=== PATIENT | male | born 1995 | race Caucasian/White ===

== ENCOUNTER 2022-02-15 00:32 | Day surgery (SDC) | payer OTHER ==
[2022-02-15] MEDS ORDERED: ACETAMINOPHEN 1000 MG/100 ML BAG IVPB ONE (01:38)
[2022-02-15] MEDS ORDERED: LACTATED RINGERS SOLUTION 1000 ML INFUS.BAG IV ONE (01:51)
[2022-02-15] MEDS ORDERED: ACETAMINOPHEN INJECTION 100 ML IVPB ONE (03:25)
[2022-02-15 03:26] LABS: BASO % 0.3 % (0-2.0); EOS % 1.2 % (0-4.5); HEMATOCRIT 42.2 % (35.4-49); HEMOGLOBIN 14.5 GM/dL (11.7-16.9); LYMPH % 35.5 % (8-40); MCH 31.6 pg (25.7-33.7); MCHC 34.4 g/dl (32.0-35.9); MEAN CELL VOLUME 91.8 fl (80-96); MEAN PLT VOLUME 7.8 fl (7.5-11.1); MONO % 6.9 % (3.8-10.2); NEUT % 56.1 % (42.8-82.8); PH,URINE 6.5 (5.0-8.0); PLATELET COUNT 213 10^3/uL (134-434); RDW 13.1 % (11.9-15.9); URINE APPEARANCE CLEAR; URINE BILIRUBIN NEGATIVE (NEGATIVE); URINE COLOR YELLOW; URINE GLUCOSE (UA) NEGATIVE (NEGATIVE); URINE KETONE NEGATIVE (NEGATIVE); URINE LEUK ESTERASE NEGATIVE (NEGATIVE); URINE NITRITE NEGATIVE (NEGATIVE); URINE PROTEIN NEGATIVE (NEGATIVE); URINE UROBILINOGEN 0.2 mg/dL (0.2-1.0); WHITE BLOOD COUNT 5.6 K/mm3 (4.0-10.0)
[2022-02-15 03:46] LABS: CALCIUM 8.9 mg/dL (8.5-10.1)
[2022-02-15 03:47] LABS: ALBUMIN 4.2 g/dl (3.4-5.0); BLOOD UREA NITROGEN 15.7 mg/dL (7-18)
[2022-02-15 03:50] LABS: CREATININE 0.6 mg/dL (0.55-1.3)
[2022-02-15 03:52] LABS: BILIRUBIN,TOTAL 0.4 mg/dL (0.2-1); TOT PROT 7.3 g/dl (6.4-8.2)
[2022-02-15] MEDS ORDERED: CEFTRIAXONE 1,000 MG in DEXTROSE 5%-WATER - 50 ML IVPB ONE (04:34)
[2022-02-15] MEDS ORDERED: KETOROLAC TROMETHAMINE 30 MG/1 ML VIAL IVPUSH ONE (04:41)
[2022-02-15] MEDS ORDERED: CEFTRIAXONE 1 GM/50 ML BAG ONE (04:47)
[2022-02-15] MEDS ORDERED: DEXTROSE 5%-NORMAL SALINE 1,000 ML IV SCH (05:00)
[2022-02-15] MEDS ORDERED: KETOROLAC TROMETHAMINE 15 MG/ML VIAL ONE (05:32)
[2022-02-15 05:38] LABS: INR 1.13 (0.83-1.09)
[2022-02-15 05:41] LABS: ACTIVATED PTT 34.8 SECONDS (25.2-36.5)
[2022-02-15] MEDS ORDERED: ACETAMINOPHEN 1000 MG/100 ML BAG IVPB PRN (05:46)
[2022-02-15] MEDS ORDERED: KETOROLAC TROMETHAMINE 15 MG/ML VIAL IVPUSH PRN (05:46)
[2022-02-15] MEDS ORDERED: ONDANSETRON 4 MG/2 ML VIAL IVPUSH PRN ×2 (05:59→13:38)
[2022-02-15] MEDS ORDERED: LACTATED RINGERS SOLUTION 1,000 ML/1,000 ML INFUS.BAG IV SCH (08:00)
[2022-02-15 09:01] LABS: MAGNESIUM 2.6 mg/dL (1.8-2.4)
[2022-02-15] MEDS ORDERED: LIDOCAINE HCL/PF 2% SDV 5ML VIAL ONE (11:44)
[2022-02-15] MEDS ORDERED: PROPOFOL 20 ML ONE ×2 (11:44)
[2022-02-15] MEDS ORDERED: ROCURONIUM BROMIDE 50 MG/5 ML SYRINGE ONE (11:44)
[2022-02-15] MEDS ORDERED: MIDAZOLAM HCL 2 MG/2 ML SINGLE DOSE VIAL ONE (11:44)
[2022-02-15] MEDS ORDERED: LIDOCAINE HCL 1%, 10 MG/ML (20ML VIAL) ONE (11:47)
[2022-02-15] MEDS ORDERED: BUPIVACAINE HCL/PF 0.5% (5MG/ML) 10 ML VIAL ONE (11:47)
[2022-02-15] MEDS ORDERED: DESFLURANE GAS 240 ML BOTTLE IH ONE (12:20)
[2022-02-15] MEDS ORDERED: BUPIVACAINE HCL/PF 0.25% (2.5MG/ML) 10 ML VIAL ONE (12:29)
[2022-02-15 12:35] VITALS: BMI 28.6
[2022-02-15] MEDS ORDERED: BUPIVACAINE HCL/PF 0.25% (2.5MG/ML) 10 ML VIAL IJ ONE (12:41)
[2022-02-15] MEDS ORDERED: KETOROLAC TROMETHAMINE 30 MG/1 ML VIAL ONE (12:48)
[2022-02-15] MEDS ORDERED: NEOSTIGMINE METHYLSULFATE 0.5 MG/1 ML - 10 ML MDV ONE (12:48)
[2022-02-15] MEDS ORDERED: GLYCOPYRROLATE 0.2 MG/1 ML VIAL ONE (12:48)
[2022-02-15] MEDS ORDERED: oxyCODONE HCL 5 MG TABLET PO PRN ×3 (13:22→13:38)
[2022-02-15] MEDS ORDERED: IBUPROFEN 600 MG TABLET (FP) PO PRN ×2 (19:30)
[2022-02-15] MEDS: oxyCODONE HCL 5 MG TABLET PO PRN (19:52)
[2022-02-16 06:59] LABS: BASO % 0.1 % (0-2.0); EOS % 0.1 % (0-4.5); HEMATOCRIT 40.1 % (35.4-49); HEMOGLOBIN 13.6 GM/dL (11.7-16.9); LYMPH % 21.3 % (8-40); MCH 31.3 pg (25.7-33.7); MCHC 33.8 g/dl (32.0-35.9); MEAN CELL VOLUME 92.5 fl (80-96); MEAN PLT VOLUME 8.5 fl (7.5-11.1); MONO % 7.1 % (3.8-10.2); NEUT % 71.4 % (42.8-82.8); PLATELET COUNT 236 10^3/uL (134-434); RBC 4.34 M/mm3 (4.00-5.60); RDW 13.1 % (11.9-15.9); WHITE BLOOD COUNT 7.9 K/mm3 (4.0-10.0)
[2022-02-16 08:11] LABS: CALCIUM 8.6 mg/dL (8.5-10.1)
[2022-02-16 08:12] LABS: ALBUMIN 3.7 g/dl (3.4-5.0)
[2022-02-16] MEDS: oxyCODONE HCL 5 MG TABLET PO PRN (08:14)
[2022-02-16 08:15] LABS: CREATININE 0.6 mg/dL (0.55-1.3)
[2022-02-16 08:16] LABS: TOT PROT 6.6 g/dl (6.4-8.2)
[2022-02-16] MEDS ORDERED: KETOROLAC TROMETHAMINE 30 MG/1 ML VIAL IVPUSH ONE (11:00)
[2022-02-16 12:44] LABS: PHOSPHOROUS 4.2 mg/dL (2.5-4.9)
[2022-02-16 15:39] VITALS: BP 114/66; PULSE 84; TEMP 98.1
== END 2022-02-16 18:45 | disposition home or self-care (01) ==
LOC: JER 00:32 → JASUSAT 04:46 → UNDOADMOB 04:46 → JERBED 04:46 → J6S 10:00 → JERBED 10:00 → JASUSAT 02-16 18:45
PROVIDERS: ATTEND Hospitalist
PROC: 0DTJ4ZZ Resection of Appendix, Percutaneous Endoscopic Approach (ICD-10-PCS; principal; 2022-02-15 12:00)
DX: K35.80 Unspecified acute appendicitis (principal)
CPT/HCPCS: 36415; 74177-TC; 80053; 81003; 83735; 84100; 85025; 85610; 85730; 86850; 86900; 86901; 87086; 87491; 87591; 88304-TC; 93005; 93010; 94010; 94760; 99285-25; C9803-CS; U0003; U0005

== ENCOUNTER 2022-06-18 12:08 | Emergency (ER) | payer OTHER ==
[2022-06-18 12:31] VITALS: BP 106/69; PULSE 79; RESP 17; TEMP 97.8; BMI 27.4
[2022-06-18] MEDS ORDERED: MAG HYDROX/AL HYDROX/SIMETH 30 ML UNIT-DOSE CUP PO ONE (13:28)
[2022-06-18] MEDS ORDERED: ACETAMINOPHEN 1000 MG/100 ML BAG IVPB ONE (13:28)
[2022-06-18] MEDS ORDERED: ACETAMINOPHEN 325 MG TABLET (FP) ONE (13:37)
[2022-06-18] MEDS ORDERED: MAG HYDROX/AL HYDROX/SIMETH 30 ML UNIT-DOSE CUP ONE (13:38)
[2022-06-18 15:47] LABS: BASO % 0.2 % (0-2.0); EOS % 0.4 % (0-4.5); HEMATOCRIT 43.6 % (35.4-49); HEMOGLOBIN 15.2 GM/dL (11.7-16.9); MCH 31.9 pg (25.7-33.7); MCHC 34.8 g/dl (32.0-35.9); MEAN CELL VOLUME 91.6 fl (80-96); MEAN PLT VOLUME 8.8 fl (7.5-11.1); MONO % 6.7 % (3.8-10.2); NEUT % 57.7 % (42.8-82.8); PLATELET COUNT 269 10^3/uL (134-434); RBC 4.76 M/mm3 (4.00-5.60); RDW 12.6 % (11.9-15.9); WHITE BLOOD COUNT 5.3 K/mm3 (4.0-10.0)
[2022-06-18 16:08] LABS: CALCIUM 8.9 mg/dL (8.5-10.1)
[2022-06-18 16:09] LABS: ALBUMIN 4.2 g/dl (3.4-5.0); BLOOD UREA NITROGEN 12.3 mg/dL (7-18)
[2022-06-18 16:12] LABS: CREATININE 0.6 mg/dL (0.55-1.3)
[2022-06-18 16:13] LABS: TOT PROT 7.6 g/dl (6.4-8.2)
[2022-06-18 16:14] LABS: BILIRUBIN,TOTAL 0.6 mg/dL (0.2-1)
[2022-06-18 16:37] LABS: PH,URINE 6.5 (5.0-8.0); URINE APPEARANCE CLEAR; URINE BILIRUBIN NEGATIVE (NEGATIVE); URINE COLOR YELLOW; URINE GLUCOSE (UA) NEGATIVE (NEGATIVE); URINE KETONE NEGATIVE (NEGATIVE); URINE LEUK ESTERASE NEGATIVE (NEGATIVE); URINE NITRITE NEGATIVE (NEGATIVE); URINE PROTEIN NEGATIVE (NEGATIVE); URINE UROBILINOGEN 0.2 mg/dL (0.2-1.0)
== END 2022-06-18 19:05 | disposition home or self-care (01) ==
LOC: JER 12:08
PROC: 3E033NZ Introduction of Analgesics, Hypnotics, Sedatives into Peripheral Vein, Percutaneous Approach (ICD-10-PCS; principal; 2022-06-18)
DX: R10.11 Right upper quadrant pain (principal)
CPT/HCPCS: 36415; 76705-TC; 80053; 81003; 83690; 85025; 99284-25

== ENCOUNTER 2022-07-04 11:36 | Emergency (ER) | payer OTHER ==
[2022-07-04 12:16] VITALS: BP 105/73; PULSE 90; RESP 18; TEMP 97.7; BMI 28.4
[2022-07-04] MEDS ORDERED: SODIUM CHLORIDE 1,000 ML IV STA (13:08)
[2022-07-04] MEDS ORDERED: ACETAMINOPHEN 1000 MG/100 ML BAG IVPB ONE (13:09)
[2022-07-04] MEDS ORDERED: ACETAMINOPHEN INJECTION 100 ML IVPB ONE (13:21)
[2022-07-04 14:48] LABS: BASO % 0.3 % (0-2.0); EOS % 1.7 % (0-4.5); HEMATOCRIT 45.4 % (35.4-49); HEMOGLOBIN 15.4 GM/dL (11.7-16.9); LYMPH % 36.5 % (8-40); MCH 31.1 pg (25.7-33.7); MCHC 33.9 g/dl (32.0-35.9); MEAN CELL VOLUME 91.8 fl (80-96); MEAN PLT VOLUME 8.9 fl (7.5-11.1); MONO % 6.9 % (3.8-10.2); NEUT % 54.6 % (42.8-82.8); PLATELET COUNT 280 10^3/uL (134-434); RBC 4.95 M/mm3 (4.00-5.60); RDW 13.1 % (11.9-15.9)
[2022-07-04 15:02] LABS: URINE APPEARANCE CLEAR; URINE BILIRUBIN NEGATIVE (NEGATIVE); URINE COLOR YELLOW; URINE GLUCOSE (UA) NEGATIVE (NEGATIVE); URINE KETONE NEGATIVE (NEGATIVE); URINE LEUK ESTERASE NEGATIVE (NEGATIVE); URINE NITRITE NEGATIVE (NEGATIVE); URINE PROTEIN NEGATIVE (NEGATIVE); URINE UROBILINOGEN 0.2 mg/dL (0.2-1.0)
[2022-07-04 15:23] LABS: CALCIUM 9.2 mg/dL (8.5-10.1)
[2022-07-04 15:24] LABS: ALBUMIN 4.3 g/dl (3.4-5.0); BLOOD UREA NITROGEN 10.5 mg/dL (7-18)
[2022-07-04 15:27] LABS: CREATININE 0.7 mg/dL (0.55-1.3)
[2022-07-04 15:28] LABS: TOT PROT 7.9 g/dl (6.4-8.2)
[2022-07-04 15:29] LABS: BILIRUBIN,TOTAL 0.4 mg/dL (0.2-1)
== END 2022-07-04 18:22 | disposition home or self-care (01) ==
LOC: JER 11:36
PROC: 3E033NZ Introduction of Analgesics, Hypnotics, Sedatives into Peripheral Vein, Percutaneous Approach (ICD-10-PCS; principal; 2022-07-04)
PROC: 3E0337Z Introduction of Electrolytic and Water Balance Substance into Peripheral Vein, Percutaneous Approach (ICD-10-PCS; 2022-07-04)
DX: R10.9 Unspecified abdominal pain (principal)
CPT/HCPCS: 36415; 74177-TC; 80053; 81003; 83690; 85025; 87086; 99285-25; Q9967

== ENCOUNTER 2022-12-25 10:24 | Emergency (ER) | payer OTHER ==
[2022-12-25 10:32] VITALS: BP 128/56; PULSE 81; RESP 16; TEMP 98; BMI 31.1
[2022-12-25 11:22] LABS: URINE APPEARANCE CLEAR; URINE BILIRUBIN NEGATIVE (NEGATIVE); URINE COLOR YELLOW; URINE GLUCOSE (UA) NEGATIVE (NEGATIVE); URINE KETONE NEGATIVE (NEGATIVE); URINE LEUK ESTERASE NEGATIVE (NEGATIVE); URINE NITRITE NEGATIVE (NEGATIVE); URINE PROTEIN NEGATIVE (NEGATIVE)
== END 2022-12-25 11:27 | disposition home or self-care (01) ==
LOC: JER 10:24 → JERFT 10:24
DX: R35.0 Frequency of micturition (principal)
CPT/HCPCS: 36415; 81003; 82962; 87086; 87491; 87591; 99283-25

== ENCOUNTER 2023-04-22 01:13 | Observation (INO) | payer OTHER ==
[2023-04-22 01:21] VITALS: BMI 23.3
[2023-04-22] MEDS ORDERED: VANCOMYCIN 1 GM in D5W (PRE-DOCKED) 1,000 MG/250 ML (RESTRICTED TO ID ONLY IVPB ONE (01:39)
[2023-04-22] MEDS ORDERED: PIPERACILLIN/TAZOB 3.375 GM 3.375 GM in DEXTROSE 5%-WATER - 50 ML IVPB ONE (01:39)
[2023-04-22] MEDS ORDERED: ACETAMINOPHEN 1000 MG/100 ML BAG IVPB ONE (01:40)
[2023-04-22] MEDS ORDERED: ACETAMINOPHEN INJECTION 100 ML IVPB ONE (01:49)
[2023-04-22] MEDS ORDERED: VANCOMYCIN/WATER FOR INJ (PEG) 1,000 MG/200 ML BAG IVPB ONE (01:50)
[2023-04-22] MEDS ORDERED: PIPERACILLIN/TAZOB 3.375 GM 3.375 GM/50 ML BAG IVPB ONE (01:50)
[2023-04-22 02:00] LABS: BASO % 0.2 % (0-2.0); EOS % 0.6 % (0-4.5); HEMATOCRIT 41.7 % (35.4-49); HEMOGLOBIN 14.3 GM/dL (11.7-16.9); LYMPH % 27.4 % (8-40); MCH 30.9 pg (25.7-33.7); MCHC 34.3 g/dl (32.0-35.9); MEAN CELL VOLUME 90.2 fl (80-96); MEAN PLT VOLUME 8.3 fl (7.5-11.1); MONO % 7.2 % (3.8-10.2); NEUT % 64.6 % (42.8-82.8); PLATELET COUNT 231 10^3/uL (134-434); RBC 4.63 M/mm3 (4.00-5.60); RDW 13.2 % (11.9-15.9); WHITE BLOOD COUNT 6.6 K/mm3 (4.0-10.0)
[2023-04-22 02:07] LABS: INR 1.1 (0.83-1.09); PROTHROMBIN TIME (PATIENT) 12.7 SEC (9.7-13.0)
[2023-04-22 02:09] LABS: ACTIVATED PTT 30.5 SECONDS (25.2-36.5)
[2023-04-22 02:21] LABS: ALBUMIN 4.2 g/dl (3.4-5.0)
[2023-04-22 02:22] LABS: BLOOD UREA NITROGEN 16.6 mg/dL (7-18)
[2023-04-22 02:25] LABS: CREATININE 0.9 mg/dL (0.55-1.3)
[2023-04-22 02:26] LABS: TOT PROT 7.6 g/dl (6.4-8.2)
[2023-04-22 02:27] LABS: BILIRUBIN,TOTAL 0.6 mg/dL (0.2-1)
[2023-04-22 03:06] LABS: ERYTHROCYTE SEDIMENTATION RATE 1 mm/hr (0-10)
[2023-04-22] MEDS ORDERED: ACETAMINOPHEN 325 MG TABLET (FP) PO PRN (03:28)
[2023-04-22] MEDS ORDERED: CEFTRIAXONE 1 GM/50 ML BAG ONE (08:54)
[2023-04-22] MEDS ORDERED: ENOXAPARIN NA (PORCINE) 40 MG/0.4 ML DISP.SYRIN SQ ONE (08:54)
[2023-04-22] MEDS ORDERED: CLINDAMYCIN 600MG PREMIX IVPB 600 MG/50 ML BAG IVPB ONE (08:54)
[2023-04-22] MEDS: ENOXAPARIN NA (PORCINE) 40 MG/0.4 ML DISP.SYRIN SQ SCH ×2 (09:15→09:18)
[2023-04-22] MEDS ORDERED: CEFTRIAXONE 1 GM in DEXTROSE 5%-WATER - 50 ML IVPB SCH (10:00)
[2023-04-22] MEDS ORDERED: CLINDAMYCIN 600MG PREMIX IVPB 600 MG/50 ML BAG IVPB SCH (10:00)
[2023-04-22 15:40] VITALS: BP 109/61; PULSE 71; RESP 18; TEMP 97.2
== END 2023-04-22 16:17 | disposition home or self-care (01) ==
LOC: JER 01:13 → JERBED 02:53
PROVIDERS: ADMIT Internal Medicine; ATTEND Internal Medicine
PROC: 3E033NZ Introduction of Analgesics, Hypnotics, Sedatives into Peripheral Vein, Percutaneous Approach (ICD-10-PCS; principal; 2023-04-22)
PROC: 3E03329 Introduction of Other Anti-infective into Peripheral Vein, Percutaneous Approach (ICD-10-PCS; 2023-04-22)
DX: S61.012A Laceration without foreign body of left thumb without damage to nail, initial encounter (principal); W26.0XXA Contact with knife, initial encounter; Y93.G3 Activity, cooking and baking; Y92.000 Kitchen of unspecified non-institutional (private) residence as the place of occurrence of the external cause
CPT/HCPCS: 36415; 73140-TC-LT-FY; 80053; 85025; 85610; 85651; 85730; 86140; 86850; 86900; 86901; 87070; 87186; 87205; 96365; 96367; 96368; 96375; 99285-25; G0378

== ENCOUNTER 2023-10-27 01:18 | Emergency (ER) | payer OTHER ==
[2023-10-27 01:30] VITALS: BP 139/83; PULSE 92; RESP 18; TEMP 98.1; BMI 29.2
[2023-10-27] MEDS ORDERED: CEPHALEXIN MONOHYDRATE 500 MG CAPSULE (UD) ONE (03:38)
[2023-10-27] MEDS ORDERED: CEPHALEXIN MONOHYDRATE 500 MG CAPSULE (UD) PO ONE (03:41)
== END 2023-10-27 03:45 | disposition home or self-care (01) ==
LOC: JER 01:18
DX: N48.21 Abscess of corpus cavernosum and penis (principal); R23.8 Other skin changes
CPT/HCPCS: 99283-25

== ENCOUNTER 2024-05-28 01:30 | Emergency (ER) | payer OTHER ==
[2024-05-28 01:51] VITALS: BP 135/81; PULSE 83; RESP 18; TEMP 98.6; BMI 29.2
[2024-05-28] MEDS ORDERED: IBUPROFEN 400 MG TABLET (FP) PO ONE ×2 (02:29→03:45)
[2024-05-28] MEDS ORDERED: ACETAMINOPHEN 500 MG TABLET (FP) ONE (02:30)
[2024-05-28] MEDS: IBUPROFEN 400 MG TABLET (FP) PO ONE ×2 (02:31→03:46)
[2024-05-28] MEDS: ACETAMINOPHEN 500 MG TABLET (FP) PO ONE (02:31)
[2024-05-28 02:53] LABS: URINE APPEARANCE CLEAR; URINE BILIRUBIN NEGATIVE (NEGATIVE); URINE COLOR YELLOW; URINE GLUCOSE (UA) NEGATIVE (NEGATIVE); URINE KETONE NEGATIVE (NEGATIVE); URINE LEUK ESTERASE NEGATIVE (NEGATIVE); URINE NITRITE NEGATIVE (NEGATIVE); URINE PROTEIN NEGATIVE (NEGATIVE); URINE UROBILINOGEN 0.2 mg/dL (0.2-1.0)
== END 2024-05-28 03:46 | disposition home or self-care (01) ==
LOC: JER 01:30
DX: R10.9 Unspecified abdominal pain (principal); M62.838 Other muscle spasm
CPT/HCPCS: 81003; 99283-25

== ENCOUNTER 2024-07-06 21:33 | Emergency (ER) | payer OTHER ==
[2024-07-06 21:42] VITALS: BP 129/96; PULSE 87; RESP 18; TEMP 98.8; BMI 32.9
[2024-07-06] MEDS ORDERED: IBUPROFEN 600 MG TABLET (FP) PO ONE (22:30)
[2024-07-06] MEDS ORDERED: ACETAMINOPHEN 500 MG TABLET (FP) ONE (22:30)
[2024-07-06] MEDS: IBUPROFEN 600 MG TABLET (FP) PO ONE (22:32)
[2024-07-06] MEDS: ACETAMINOPHEN 500 MG TABLET (FP) PO ONE (22:32)
== END 2024-07-07 00:29 | disposition home or self-care (01) ==
LOC: JERFT 21:33 → JER 21:33 → JERFT 07-07 00:29
DX: R51.9 Headache, unspecified (principal)
CPT/HCPCS: 70450-TC; 99284-25

== ENCOUNTER 2025-04-13 01:24 | Emergency (ER) | payer SELFPAY ==
[2025-04-13 01:31] VITALS: BP 139/81; PULSE 98; RESP 18; TEMP 98.6; BMI 26.6
[2025-04-13] MEDS ORDERED: FAMOTIDINE 20 MG TABLET ONE (02:04)
[2025-04-13] MEDS ORDERED: MAG HYDROX/AL HYDROX/SIMETH 30 ML UNIT-DOSE CUP ONE (02:04)
[2025-04-13] MEDS: FAMOTIDINE 20 MG TABLET PO ONE (02:15)
[2025-04-13 02:19] LABS: URINE APPEARANCE CLEAR; URINE BILIRUBIN NEGATIVE (NEGATIVE); URINE COLOR YELLOW; URINE GLUCOSE (UA) NEGATIVE (NEGATIVE); URINE KETONE NEGATIVE (NEGATIVE); URINE LEUK ESTERASE NEGATIVE (NEGATIVE); URINE NITRITE NEGATIVE (NEGATIVE); URINE PROTEIN NEGATIVE (NEGATIVE); URINE UROBILINOGEN 0.2 mg/dL (0.2-1.0)
[2025-04-13] MEDS: MAG HYDROX/AL HYDROX/SIMETH 30 ML UNIT-DOSE CUP PO ONE (02:19)
== END 2025-04-13 03:44 | disposition home or self-care (01) ==
LOC: JER 01:24
DX: R10.84 Generalized abdominal pain (principal); R11.0 Nausea
CPT/HCPCS: 81003; 87086; 99283-25